=== PATIENT | female | born 1975 | race Asian ===

== ENCOUNTER 2019-10-03 14:08 | Emergency (ER) | payer OTHER ==
[2019-10-03 14:14] VITALS: BP 150/91
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
== END 2019-10-03 15:43 | disposition home or self-care (01) ==
LOC: ED 14:08
DX: S80.811A Abrasion, right lower leg, initial encounter (principal); W05.2XXA Fall from non-moving motorized mobility scooter, initial encounter; Y93.89 Activity, other specified; Y92.480 Sidewalk as the place of occurrence of the external cause
CPT/HCPCS: 99282